=== PATIENT | male | born 1965 | race Caucasian/White ===

== ENCOUNTER 2017-12-26 20:32 | Emergency (ER) | payer OTHER ==
[~2017-12-26] VITALS: Ht 180.3 cm; Wt 113.4 kg
[2017-12-26] MEDS ORDERED: ALLOPURINOL300 MG (21:26)
[2017-12-26] MEDS ORDERED: NORVASC5 MG (21:27)
[2017-12-26] MEDS ORDERED: CARDURA8 MG (21:27)
[2017-12-26] MEDS ORDERED: DIOVAN320 MG (21:27)
[2017-12-27] MEDS ORDERED: BISMUTH PO (00:37)
== END 2017-12-27 01:16 | disposition home or self-care (01) ==
LOC: ER 20:32
DX: D69.6 Thrombocytopenia, unspecified (principal)

== ENCOUNTER 2017-12-29 07:22 | Outpatient (CLI) | payer OTHER ==
[~2017-12-29 07:22] MED LIST: ALLOPURINOL300 MG; BISMUTH PO; CARDURA8 MG; DIOVAN320 MG; NORVASC5 MG
== END 2017-12-29 07:38 | disposition home or self-care (01) ==
LOC: LAB 07:22
DX: D69.49 Other primary thrombocytopenia (principal); D51.3 Other dietary vitamin B12 deficiency anemia; I10 Essential (primary) hypertension; D50.8 Other iron deficiency anemias; D51.0 Vitamin B12 deficiency anemia due to intrinsic factor deficiency; D51.1 Vitamin B12 deficiency anemia due to selective vitamin B12 malabsorption with proteinuria; D55.0 Anemia due to glucose-6-phosphate dehydrogenase [G6PD] deficiency; E55.9 Vitamin D deficiency, unspecified; K90.89 Other intestinal malabsorption; E03.8 Other specified hypothyroidism; E06.3 Autoimmune thyroiditis; D68.8 Other specified coagulation defects; R97.0 Elevated carcinoembryonic antigen [CEA]; R97.8 Other abnormal tumor markers

== ENCOUNTER 2017-12-29 09:21 | Outpatient (CLI) | payer OTHER | END 2017-12-29 09:36 | disposition home or self-care (01) | LOC: SONOGRAMA 09:21 | DX: D69.49 Other primary thrombocytopenia (principal); D51.3 Other dietary vitamin B12 deficiency anemia; I10 Essential (primary) hypertension ==

== ENCOUNTER 2018-04-12 08:47 | Outpatient (CLI) | payer OTHER | END 2018-04-12 09:06 | disposition home or self-care (01) | LOC: LAB 08:47 | DX: D64.89 Other specified anemias (principal); D51.3 Other dietary vitamin B12 deficiency anemia; I10 Essential (primary) hypertension ==

== ENCOUNTER → 2018-05-01 | Outpatient (CLI) | payer OTHER | END | disposition home or self-care (01) | LOC: LAB 07:43 | DX: C20 Malignant neoplasm of rectum (principal); D69.49 Other primary thrombocytopenia; D51.3 Other dietary vitamin B12 deficiency anemia; I10 Essential (primary) hypertension; D50.8 Other iron deficiency anemias; D51.8 Other vitamin B12 deficiency anemias; R97.0 Elevated carcinoembryonic antigen [CEA]; N20.0 Calculus of kidney; E21.0 Primary hyperparathyroidism ==

== ENCOUNTER 2018-08-10 07:07 | Outpatient (CLI) | payer OTHER | END 2018-08-10 07:37 | disposition home or self-care (01) | LOC: LAB 07:07 | DX: C20 Malignant neoplasm of rectum (principal); D59.4 Other nonautoimmune hemolytic anemias; D69.49 Other primary thrombocytopenia; D73.89 Other diseases of spleen; D51.3 Other dietary vitamin B12 deficiency anemia; I10 Essential (primary) hypertension; N20.0 Calculus of kidney; R97.0 Elevated carcinoembryonic antigen [CEA]; K22.10 Ulcer of esophagus without bleeding; C90.00 Multiple myeloma not having achieved remission; D47.2 Monoclonal gammopathy; R94.5 Abnormal results of liver function studies; K74.69 Other cirrhosis of liver; K76.1 Chronic passive congestion of liver; K76.89 Other specified diseases of liver ==

== ENCOUNTER 2020-04-29 06:49 | Outpatient (CLI) | payer OTHER | END 2020-04-29 07:12 | disposition home or self-care (01) | LOC: LAB 06:49 | PROVIDERS: ATTEND Internal Medicine Hematology & Oncology | DX: D50.8 Other iron deficiency anemias (principal); I10 Essential (primary) hypertension; R97.0 Elevated carcinoembryonic antigen [CEA]; R97.8 Other abnormal tumor markers; R77.2 Abnormality of alphafetoprotein; D68.8 Other specified coagulation defects; D69.1 Qualitative platelet defects; C25.9 Malignant neoplasm of pancreas, unspecified; C20 Malignant neoplasm of rectum; D59.4 Other nonautoimmune hemolytic anemias; D69.49 Other primary thrombocytopenia; D73.89 Other diseases of spleen; D51.3 Other dietary vitamin B12 deficiency anemia; N20.0 Calculus of kidney; K22.10 Ulcer of esophagus without bleeding; K75.89 Other specified inflammatory liver diseases; K76.89 Other specified diseases of liver ==

== ENCOUNTER 2020-04-29 08:19 | Outpatient (CLI) | payer OTHER | END 2020-04-29 08:32 | disposition home or self-care (01) | LOC: TOM 08:19 | PROVIDERS: ATTEND Internal Medicine Hematology & Oncology | DX: C20 Malignant neoplasm of rectum (principal); D59.4 Other nonautoimmune hemolytic anemias; D69.49 Other primary thrombocytopenia; D73.89 Other diseases of spleen; D51.3 Other dietary vitamin B12 deficiency anemia; I10 Essential (primary) hypertension; N20.0 Calculus of kidney; R97.0 Elevated carcinoembryonic antigen [CEA]; K22.10 Ulcer of esophagus without bleeding; K75.89 Other specified inflammatory liver diseases; K76.89 Other specified diseases of liver ==

== ENCOUNTER → 2020-06-19 06:33 | Outpatient (CLI) | payer OTHER | END | disposition home or self-care (01) | LOC: LAB 06:33 | PROVIDERS: ATTEND Internal Medicine Hematology & Oncology | DX: M32.8 Other forms of systemic lupus erythematosus (principal); M06.8A Other specified rheumatoid arthritis, other specified site; M35.8 Other specified systemic involvement of connective tissue; M35.09 Sjogren syndrome with other organ involvement; K74.3 Primary biliary cirrhosis; D51.1 Vitamin B12 deficiency anemia due to selective vitamin B12 malabsorption with proteinuria; D51.0 Vitamin B12 deficiency anemia due to intrinsic factor deficiency; M06.9 Rheumatoid arthritis, unspecified; M34.81 Systemic sclerosis with lung involvement; E06.3 Autoimmune thyroiditis; M33.20 Polymyositis, organ involvement unspecified; M05.8A Other rheumatoid arthritis with rheumatoid factor of other specified site; C20 Malignant neoplasm of rectum; D69.49 Other primary thrombocytopenia; D59.4 Other nonautoimmune hemolytic anemias; D73.89 Other diseases of spleen; D51.3 Other dietary vitamin B12 deficiency anemia; I10 Essential (primary) hypertension; N20.0 Calculus of kidney; R97.0 Elevated carcinoembryonic antigen [CEA]; K22.10 Ulcer of esophagus without bleeding; K75.89 Other specified inflammatory liver diseases; K76.89 Other specified diseases of liver; E87.6 Hypokalemia; R16.2 Hepatomegaly with splenomegaly, not elsewhere classified ==

== ENCOUNTER → 2020-07-30 06:16 | Outpatient (CLI) | payer OTHER | END | disposition home or self-care (01) | LOC: LAB 06:16 | PROVIDERS: ATTEND Internal Medicine Hematology & Oncology | DX: D50.8 Other iron deficiency anemias (principal); D47.2 Monoclonal gammopathy; K75.4 Autoimmune hepatitis; R94.6 Abnormal results of thyroid function studies; K90.0 Celiac disease; E83.01 Wilson's disease; D69.6 Thrombocytopenia, unspecified; C20 Malignant neoplasm of rectum; D69.49 Other primary thrombocytopenia; D59.4 Other nonautoimmune hemolytic anemias; D73.89 Other diseases of spleen; D51.3 Other dietary vitamin B12 deficiency anemia; I10 Essential (primary) hypertension; N20.0 Calculus of kidney; R97.0 Elevated carcinoembryonic antigen [CEA]; K22.10 Ulcer of esophagus without bleeding; K75.89 Other specified inflammatory liver diseases; K76.89 Other specified diseases of liver; E87.6 Hypokalemia; R16.2 Hepatomegaly with splenomegaly, not elsewhere classified; R79.89 Other specified abnormal findings of blood chemistry; R74.02 Elevation of levels of lactic acid dehydrogenase [LDH] ==